=== PATIENT | female | born 1970 ===

== ENCOUNTER 2018-11-26 05:45 | Day surgery (SDC) | payer OTHER | END 2018-11-26 10:55 | disposition home or self-care (01) | LOC: AMB-ENDOS 05:45 | DX: K64.8 Other hemorrhoids (principal) ==

== ENCOUNTER 2018-11-26 15:36 | Inpatient (IN) | payer OTHER ==
[~2018-11-26] VITALS: Ht 165.1 cm; Wt 90.7 kg
[2018-11-29] MEDS ORDERED: COLACE100 MG PO (09:23)
[2018-11-29] MEDS ORDERED: ULTRAM50 MG PO (09:23)
== END 2018-11-29 12:27 | DRG 743 ==
LOC: OB/GYN 11-28 05:45 → O/R 11-28 05:45 → SURH 11-28 07:00 → OB/GYN 11-28 11:25 → SURH 11-28 11:34 → OB/GYN 11-29 12:27
PROVIDERS: ADMIT Obstetrics & Gynecology
PROC: 0UT74ZZ Resection of Bilateral Fallopian Tubes, Percutaneous Endoscopic Approach (ICD-10-PCS; 2018-11-28)
PROC: 0UT94ZZ Resection of Uterus, Percutaneous Endoscopic Approach (ICD-10-PCS; principal; 2018-11-28 07:00)
DX: D25.1 Intramural leiomyoma of uterus (principal); D25.2 Subserosal leiomyoma of uterus; N81.11 Cystocele, midline